=== PATIENT | male | born 1980 | race Caucasian/White ===

== ENCOUNTER 2017-01-04 21:31 | Emergency (ER) | payer OTHER ==
[2017-01-04 21:37] VITALS: BP 142/99; TEMP 97.3; BMI 37.8
[2017-01-04] MEDS ORDERED: DILAUDID 1 MG/ML SYRINGE IM STA (21:59)
--- NOTE | 2017-01-04 22:05 | ED.PDOC ---
General ED Provider: Dr. SWEETIE CASILLAS Chief Complaint: Shoulder Pain/Injury Stated Complaint: Pateint reports a 14 day history of left shoulder and neck pain. Has been to two chiroprators but has not helped. Has used multiple over the counter NSAIDs and Flexeril with no relief. Even had a steroid shot with did not help. Time Seen by Physician: 21:50 Mode of Arrival: Walk-In Information Source: Patient Exam Limitations: No limitations Nursing and Triage Documentation Reviewed and Agree: Yes Musculoskeletal Complaint Exam - Shoulder Pain Complaint/Exam Mechanism of Injury: Reports: No known trauma Onset/Duration: 2 weeks Symptoms Are: Still present Timing: Constant Episodes Lasting: hours, unable to sleep Initial Severity: Moderate Current Severity: Severe Location: Reports: Radiating (the neck ) Character: Reports: Aching, Throbbing, Spasmodic Alleviating: Reports: None Aggravating: Reports: Movement Associated Signs and Symptoms: Denies: Swelling, Redness, Bruising, Fever, Weakness, Numbness, Tingling Related History: Reports: Dominant hand right. Denies: Similar episode, Occupational injury Non-Orthopedic Risk Factors: Reports: None DVT Risk Factors: Reports: None Septic Arthritis Risk Factors: Reports: None Related Surgical History: Reports: None Shoulder Findings: Absent: Swelling, Ecchymosis, Abnormal contour, Rotation, Ligamentous instability, Laceration, Erythema, Warmth, Blisters, Other joint pain, Foreign body, Adson's Sign Tenderness: Present: Rotator cuff muscles (and scapular on the left) Limited Range of Motion: Present: Abduction Differential Diagnoses: Sprain, Strain, Tendonitis Review of Systems - Review Of Systems Constitutional: Reports: No symptoms Eyes: Reports: No symptoms Ears, Nose, Mouth, Throat: Reports: No symptoms Respiratory: Reports: No symptoms Cardiac: Reports: No symptoms GI: Reports: No symptoms Musculoskeletal: Reports: Back pain, Joint pain, Muscle pain, Muscle stiffness Skin: Reports: No symptoms Neurological: Reports: Anxiety Endocrine: Reports: No symptoms Hematologic/Lymphatic: Reports: No symptoms All Other Systems: Reviewed and Negative Past Medical History - Past Medical History Previously Healthy: Yes Endocrine: Reports: None Cardiovascular: Reports: Hypertension Respiratory: Reports: None Hematological: Reports: None Gastrointestinal: Reports: None Genitourinary: Reports: None Neuro/Psych: Reports: Depression Musculoskeletal: Reports: None Cancer: Reports: None - Surgical History General Surgical History: Reports: Tonsillectomy, Adenoidectomy, Other (GASTRIC SLEEVE 2013) - Family History Family History: Reports: None - Social History Smoking Status: Never smoker Hx Substance Use: No Alcohol Screening: None - Immunizations Tetanus Shot up to Date: No Physical Exam - Physical Exam Appearance: Well-appearing, Well-nourished Pain Distress: Severe Eyes: Conjunctiva clear Neck: Supple Respiratory: Airway patent, Breath sounds clear, Breath sounds equal, Respirations nonlabored Cardiovascular: RRR, Pulses normal, No rub, No murmur GI/: Soft, Nontender, No masses, Bowel sounds normal, No Organomegaly Musculoskeletal: Normal strength, No edema, No calf tenderness, Limited ROM ( Left shoulder ) Skin: Warm, Dry, Normal color Neurological: Sensation intact, Motor intact, Reflexes intact (upper ext ), Cranial nerves intact, Alert, Oriented Psychiatric: Affect appropriate, Mood appropriate Re-Evaluation - Re-Evaluation Time of Re-Evaluation: 22:20 Status: Improved Critical Care Note - Critical Care Note Total Time (mins): 0 Course - Course Orders, Labs, Meds: Orders Category Date Time Status Hydromorphone HCl [Dilaudid 1 mg/ml Syringe] MEDS 01/04/17 21:59 Discontinued 1 mg IM ONCE STA Medications Discontinued Medications Generic Name Dose Route Start Last Admin Trade Name Freq PRN Reason Stop Dose Admin Hydromorphone HCl 1 mg 01/04/17 21:59 01/04/17 22:11 Dilaudid 1 Mg/Ml Syringe IM 01/04/17 22:00 1 mg ONCE STA Administration Vital Signs: Temp Pulse Resp BP Pulse Ox 01/04/17 21:32 97.3 F L 68 18 142/99 H 97 Departure - Departure Time of Disposition: 22:29 Disposition: HOME SELF-CARE Discharge Problem: Shoulder pain Neck muscle strain Qualifiers: Encounter type: initial encounter Qualified Code(s): S16.1XXA - Strain of muscle, fascia and tendon at neck level, initial encounter Instructions: Shoulder Sprain (ED), Neck Pain (ED) Condition: Fair Pt referred to PMD for follow-up: Yes Additional Instructions: Take medications as prescribed Follow up with PCP in 3 days for possible MRI order Prescriptions: Hydrocodone/Acetaminophen [Roxton 5-325 Tablet] 1 tab PO Q6HR PRN #12 tablet PRN Reason: PAIN Diazepam [Valium] 5 mg PO BEDTIME PRN #14 tablet PRN Reason: Spasms Allergies/Adverse Reactions: Allergies erythromycin ethylsuccinate [From Pediazole] Allergy (Severe, Unverified 21:37) rash sulfisoxazole acetyl [From Pediazole] Allergy (Severe, Unverified 01/04/17 21:37 ) rash Home Medications: Ambulatory Orders Diazepam [Valium] 5 mg PO BEDTIME PRN #14 tablet 01/04/17 Hydrocodone/Acetaminophen [Roxton 5-325 Tablet] 1 tab PO Q6HR PRN #12 tablet Disposition Discussed With: Patient, Family
== END 2017-01-04 22:30 | disposition home or self-care (01) ==
LOC: ED 21:31
DX: S16.1XXA Strain of muscle, fascia and tendon at neck level, initial encounter (principal); M25.512 Pain in left shoulder
CPT/HCPCS: 96372; 99282

== ENCOUNTER 2017-01-23 13:26 | Outpatient (CLI) ==
[2017-01-23 13:45] LABS: BASOPHILS % (AUTO) 0.5 % (0.0-3.0); EOSINOPHILS # (AUTO) 0.1 K/ul (0.0-0.7); EOSINOPHILS % (AUTO) 1.9 % (0.0-7.0); HEMATOCRIT 44.9 % (42.0-52.0); HEMOGLOBIN 14.9 g/dl (14.0-18.0); IMMATURE GRANULOCYTE % (AUTO) 0.5 % (0.0-5.0); LYMPHOCYTES # (AUTO) 1.9 K/uL (0.60-3.4); LYMPHOCYTES % (AUTO) 33.3 (10.0-50.0); MEAN CORPUSCULAR HEMOGLOBIN 29.5 pg (27.0-31.0); MEAN CORPUSCULAR HGB CONC 33.2 (31.8-35.4); MEAN CORPUSCULAR VOLUME 88.9 fl (80.0-94.0); MONOCYTES # (AUTO) 0.3 K/uL (0.4-2.0); MONOCYTES % (AUTO) 5.5 (0-10); NEUTROPHILS # (AUTO) 3.4 K/ul (2.0-6.9); NEUTROPHILS % (AUTO) 58.3; PLATELET COUNT 170 10^3/uL (140-440); RED BLOOD COUNT 5.05 10^6/ul (4.70-6.10); WHITE BLOOD COUNT 5.83 K/ul (4.2-10.2)
[2017-01-23 14:12] LABS: ALBUMIN 3.6 g/dL (3.4-5.0); ALBUMIN/GLOBULIN RATIO 1.2; ANION GAP 10.9; BILIRUBIN,TOTAL 0.44 mg/dL (0.00-1.20); BUN/CREATININE RATIO 16.49; CALCIUM 9.2 mg/dL (8.2-10.2); CHOL/HDL RATIO 2.4 (4.5-6.4); CREATININE 0.97 mg/dL (0.60-1.10); POTASSIUM 3.9 mmol/L (3.5-5.1); TOTAL PROTEIN 6.6 g/dL (6.4-8.2)
== END 2017-01-23 13:27 | disposition home or self-care (01) ==
LOC: LAB 13:26
PROVIDERS: ATTEND Nurse Practitioner Family
DX: Z00.00 Encounter for general adult medical examination without abnormal findings (principal)
CPT/HCPCS: 36415; 80053; 80061; 84443; 85025

== ENCOUNTER 2017-06-22 15:13 | Outpatient (CLI) | END 2017-06-22 15:14 | disposition home or self-care (01) | LOC: RHC-LAB 15:13 | PROVIDERS: ATTEND Nurse Practitioner Family | DX: J02.9 Acute pharyngitis, unspecified (principal) | CPT/HCPCS: 87651 ==